=== PATIENT | female | born 1935 | race Caucasian/White ===

== ENCOUNTER 2020-09-09 12:47 | Emergency (ER) | payer MEDICARE ==
[2020-09-09] MEDS ORDERED: NORCO 5-325 TA1 EACH PO (15:59)
== END 2020-09-09 16:50 | disposition home or self-care (01) ==
LOC: FER 12:47
DX: S22.41XA Multiple fractures of ribs, right side, initial encounter for closed fracture (principal); M50.321 Other cervical disc degeneration at C4-C5 level; M54.5 Low back pain; R51.9 Headache, unspecified; M54.6 Pain in thoracic spine; I10 Essential (primary) hypertension; E11.9 Type 2 diabetes mellitus without complications; E03.9 Hypothyroidism, unspecified; E78.5 Hyperlipidemia, unspecified; Z88.2 Allergy status to sulfonamides; Z88.8 Allergy status to other drugs, medicaments and biological substances; Z88.0 Allergy status to penicillin; Z91.041 Radiographic dye allergy status; W19.XXXA Unspecified fall, initial encounter; Y92.009 Unspecified place in unspecified non-institutional (private) residence as the place of occurrence of the external cause
CPT/HCPCS: 70450; 71101; 72125; 72128; 94010